=== PATIENT | male | born 1975 | race African-American/Black ===

== ENCOUNTER 2021-01-16 07:18 | Day surgery (SDC) | payer BC ==
[2021-01-16 07:55] VITALS: BMI 31.8
[2021-01-16] MEDS ORDERED: LACTATED RINGERS SOLUTION 1000 ML INFUS.BAG IV ONE (08:05)
[2021-01-16 08:57] LABS: BASO % 1.4 % (0-2.0); EOS % 8.9 % (0-4.5); HEMATOCRIT 37.8 % (35.4-49); HEMOGLOBIN 13.3 GM/dl (11.7-16.9); LYMPH % 35.7 % (8-40); MCH 34.7 pg (25.7-33.7); MCHC 35.1 g/dl (32.0-35.9); MEAN CELL VOLUME 98.9 fl (80-96); MEAN PLT VOLUME 8.3 fl (7.5-11.1); MONO % 6.8 % (3.8-10.2); NEUT % 47.2 % (42.8-82.8); PLATELET COUNT 245 10^3/uL (134-434); RBC 3.83 M/mm3 (4.00-5.60); RDW 13.4 % (11.9-15.9); WHITE BLOOD COUNT 4.2 K/mm3 (4.0-10.8)
[2021-01-16 09:01] LABS: ALBUMIN 3.9 g/dl (3.4-5.0); BILIRUBIN,TOTAL 0.6 mg/dl (0.2-1); CALCIUM 8.7 mg/dl (8.5-10); TOT PROT 7.5 g/dl (6.4-8.2)
[2021-01-16 09:11] LABS: ACTIVATED PTT 30.4 SECONDS (25.2-36.5)
[2021-01-16 09:16] LABS: INR 1.11 (0.82-1.09); PROTHROMBIN TIME (PATIENT) 12.3 SEC (10.2-13.0)
[2021-01-16] MEDS ORDERED: BUPIVACAINE LIPOSOME/PF (EXPAREL) 266 MG/20 ML VIAL ONE (11:54)
[2021-01-16] MEDS ORDERED: MIDAZOLAM HCL 2 MG/2 ML SINGLE DOSE VIAL ONE (11:54)
[2021-01-16] MEDS ORDERED: BUPIVACAINE HCL/PF 0.5% (5MG/ML) 10 ML VIAL ONE ×2 (11:54→12:58)
[2021-01-16] MEDS ORDERED: SODIUM CHLORIDE 0.9% P/F 10 ML VIAL IJ ONE (11:54)
[2021-01-16] MEDS ORDERED: ceFAZolin SODIUM 1 GM VIAL ONE (13:25)
[2021-01-16] MEDS ORDERED: DEXAMETHASONE SOD PHOSPHATE 4 MG/1 ML VIAL ONE (13:25)
[2021-01-16] MEDS ORDERED: ONDANSETRON 4 MG/2 ML VIAL ONE (13:25)
[2021-01-16] MEDS ORDERED: oxyCODONE HCL 5 MG TABLET PO PRN ×2 (13:42)
[2021-01-16] MEDS ORDERED: LACTATED RINGERS SOLUTION 1,000 ML IV SCH (13:45)
[2021-01-16] MEDS: ACETAMINOPHEN 325 MG TABLET (FP) PO SCH ×2 (15:02→20:54)
[2021-01-16] MEDS ORDERED: ACETAMINOPHEN 325 MG TABLET (FP) ONE (15:09)
[2021-01-16] MEDS: oxyCODONE HCL 10 MG SUSTAINED ACTING TABLET PO SCH (21:47)
[2021-01-16] MEDS: ceFAZolin 2 GRAM PREMIX BAG IVPB SCH (21:48)
[2021-01-17] MEDS: ceFAZolin 2 GRAM PREMIX BAG IVPB SCH (06:04)
[2021-01-17] MEDS: ACETAMINOPHEN 325 MG TABLET (FP) PO SCH ×2 (06:05→10:52)
[2021-01-17] MEDS: oxyCODONE HCL 10 MG SUSTAINED ACTING TABLET PO SCH (10:52)
[2021-01-17 10:55] VITALS: BP 158/87; PULSE 76; TEMP 98
== END 2021-01-17 12:29 | disposition home or self-care (01) ==
LOC: FER 07:18 → FM/S 07:25 → UNDOADMIN 07:25 → FM/S 12:42 → UNDOADMIN 12:42 → FASUSAT 15:07 → FM/S 15:07 → FASUSAT 01-17 12:29
PROVIDERS: ATTEND Orthopaedic Surgery
PROC: 0QSH04Z Reposition Left Tibia with Internal Fixation Device, Open Approach (ICD-10-PCS; principal; 2021-01-16 13:35)
DX: S82.142A Displaced bicondylar fracture of left tibia, initial encounter for closed fracture (principal); I10 Essential (primary) hypertension; E78.5 Hyperlipidemia, unspecified; Z21 Asymptomatic human immunodeficiency virus [HIV] infection status; Z88.0 Allergy status to penicillin; X58.XXXA Exposure to other specified factors, initial encounter; Y93.9 Activity, unspecified; Y92.9 Unspecified place or not applicable
CPT/HCPCS: 27536; C1713; 36415; 71045-TC-FY; 73562-TC-LT-FY; 73590-TC-LT-FY; 80053; 85025; 85610; 85730; 86850; 86900; 86901; 93005; 94760; 97116-GP; 99285-25; C9803; U0003; U0005